=== PATIENT | male | born 1965 | race Hispanic/Latino ===

== ENCOUNTER → 2021-04-26 | Outpatient (CLI) | payer BC, OTHER ==
[~2021-04-26] MED LIST: AMLO2.5T4 PO; HYDR-4064 PO; LEVO50TA11 PO; LOSA1TAB54 PO; METF-444 PO; ROSU5TAB12 PO
== END | disposition home or self-care (01) ==
LOC: SHCH 09:27
PROVIDERS: ATTEND Student in an Organized Health Care Education/Training Program
DX: R55 Syncope and collapse (principal); E66.9 Obesity, unspecified; E78.5 Hyperlipidemia, unspecified
CPT/HCPCS: 93306; 93356

== ENCOUNTER → 2021-04-27 | Outpatient (CLI) | payer BC ==
[~2021-04-27] MED LIST changes: +REGADENOSON 0.4 MG/5 ML PF SYG IVP SCH
== END | disposition home or self-care (01) ==
LOC: SHCH 08:10
PROVIDERS: ATTEND Student in an Organized Health Care Education/Training Program
DX: E78.5 Hyperlipidemia, unspecified (principal)
CPT/HCPCS: 78452; 93017; 96374; A9500 ×2; J2785